=== PATIENT | female | born 1970 | race Caucasian/White ===

== ENCOUNTER 2018-02-23 22:02 | Emergency (ER) | payer OTHER ==
[~2018-02-23] VITALS: Ht 162.6 cm; Wt 81.6 kg
[2018-02-23 22:09] VITALS: BP 156/93
== END 2018-02-24 04:10 | disposition home or self-care (01) ==
LOC: ER 22:02
DX: S93.491A Sprain of other ligament of right ankle, initial encounter (principal); Z88.8 Allergy status to other drugs, medicaments and biological substances; X50.1XXA Overexertion from prolonged static or awkward postures, initial encounter; Y93.89 Activity, other specified; Y99.8 Other external cause status; Y92.89 Other specified places as the place of occurrence of the external cause
CPT/HCPCS: 73610; 81025; 99285; L3260